=== PATIENT | male | born 1965 | race Caucasian/White ===

== ENCOUNTER 2020-04-23 16:51 | Emergency (ER) | payer BC, OTHER ==
--- NOTE | 2020-04-23 19:05 | RAD REPORT ---
EXAM DESCRIPTION: RAD - Chest Single View - 04/23/2020 6:33 pm CLINICAL HISTORY: cough, fever Chest pain. COMPARISON: No comparisons FINDINGS: Portable technique limits examination quality. The lungs are grossly clear. The heart is normal in size. No displaced fractures. IMPRESSION: No acute intrathoracic process suspected.
--- NOTE | 2020-04-23 19:40 | ER ---
Nurse's Notes [facility] Name: Jose Tinajero Age: 54 yrs Sex: Male : 1965 Arrival Date: 04/23/2020 Time: 17:06 Bed 19 Private MD: Diagnosis: Acute pharyngitis Presentation: 04/23 17:10 Chief complaint: Patient states: Cough and sore throat x 2 days. SOB, fatigue and ca1 malaise. Reports Low grade fever. Denies N/V/D. Coronavirus screen: Patient reports a cough. Patient reports shortness of breath or difficulty breathing. Patient reports a measured and/or subjective temperature greater than 100.4F. Patient denies travel on a cruise ship or to a country the [facility] currently lists as an affected area. Patient denies contact with known and/or suspected case of COVID-19. Patient instructed to continue to wear a mask when interacting with others. Patient moved to private room, placed in contact and droplet isolation with eye protection until further assessment. Ebola Screen: Patient negative for fever greater than or equal to 101.5 degrees Fahrenheit, and additional compatible Ebola Virus Disease symptoms Patient denies exposure to infectious person. Patient denies travel to an Ebola-affected area in the 21 days before illness onset. No symptoms or risks identified at this time. Initial Sepsis Screen: Does the patient meet any 2 criteria? No. Patient's initial sepsis screen is negative. Does the patient have a suspected source of infection? No. Patient's initial sepsis screen is negative. Risk Assessment: Do you want to hurt yourself or someone else? Patient reports no desire to harm self or others. Onset of symptoms was April 23, 2020. 17:10 Method Of Arrival: Ambulatory ca1 17:10 Acuity: RUBY 3 ca1 Historical: - Allergies: 17:13 No Known Allergies; ca1 - PMHx: 17:13 None; ca1 - PSHx: 17:13 None; ca1 - Immunization history:: Adult Immunizations up to date. - Social history:: Smoking status: Patient reports the use of cigarette tobacco products, smokes one-half pack cigarettes per day. Screenin:05 Abuse screen: Denies threats or abuse. Denies injuries from another. Nutritional ph screening: No deficits noted. Tuberculosis screening: No symptoms or risk factors identified. Fall Risk None identified. Assessment: 19:05 General: Appears in no apparent distress. comfortable, Behavior is calm, cooperative, ph appropriate for age, Reports chills for fatigue for Denies fever. Pain: Denies pain. Neuro: Level of Consciousness is awake, alert, obeys commands, Oriented to person, place, time, situation. Cardiovascular: Capillary refill < 3 seconds in bilateral fingers Patient's skin is warm and dry. Respiratory: Reports shortness of breath on exertion cough that is Airway is patent Respiratory effort is even, unlabored, Respiratory pattern is regular, symmetrical. GI: No signs and/or symptoms were reported involving the gastrointestinal system. Derm: Skin is intact, is healthy with good turgor, Skin is pink, warm \T\ dry. Musculoskeletal: Circulation, motion, and sensation intact. Range of motion: intact in all extremities. 20:05 Reassessment: Patient and/or family updated on plan of care and expected duration. Pain mt2 level reassessed. Patient states feeling better. Patient states symptoms have improved. Vital Signs: 17:10 BP 146 / 83; Pulse 73; Resp 17 S; Temp 99.7(TE); Pulse Ox 98% on R/A; Weight 99.79 kg ca1 (R); Height 5 ft. 11 in. (180.34 cm) (R); 20:05 BP 125 / 69; Pulse 81; Resp 19; Temp 98.2(TE); Pulse Ox 97% on R/A; Pain 0/10; mt2 17:10 Body Mass Index 30.68 (99.79 kg, 180.34 cm) ca1 ED Course: 17:06 Patient arrived in ED. mr 17:12 Triage completed. ca1 17:13 Arm band placed on right wrist. ca1 17:15 Jayden Salguero PA is PHCP. jmm 17:15 Jules Hand MD is Attending Physician. jmm 17:47 Suzy Hdz, EDVIN is Primary Nurse. ph 18:33 Chest Single View XRAY In Process Unspecified. EDMS 19:06 Patient has correct armband on for positive identification. Bed in low position. Call ph light in reach. Side rails up X 1. 19:06 Strep Sent. ph 19:06 COVID-19 Sent. ph 19:06 Flu Sent. ph 20:05 No provider procedures requiring assistance completed. Patient did not have IV access mt2 during this emergency room visit. Administered Medications: 20:06 Drug: Decadron 10 mg Route: IM; Site: right deltoid; mt2 20:06 Follow up: Response: No adverse reaction; Medication administered at discharge. mt2 Outcome: 19:39 Discharge ordered by . liliane 20:05 Discharged to home ambulatory. mt2 20:05 Condition: good 20:05 Discharge instructions given to patient, Instructed on discharge instructions, follow up and referral plans. medication usage, Demonstrated understanding of instructions, follow-up care, medications, Prescriptions given X 1. 20:07 Patient left the ED. mt2 Addendum: 04/25/2020 18:42 Addendum: COVID-19 Result: Positive result giiven to ED physician to notify pt. s g Physician: Surinder Lyons MD Physician was able to contact pt and pt was notified of positive COVID-19 swab result. Physician answered pt questions. Signatures: Dispatcher [employer] EDMS Kurt Olivo RN Jayden Pacheco PA PA jmm Rivera, Mary mr Hall, Patricia RN EDVIN Gretchen Reilly RN EDVIN [facility] Bia Montano RN RN mt2
--- NOTE | 2020-04-23 19:40 | EDPHYS ---
Physician Documentation [facility] Name: Jose Tinajero Age: 54 yrs Sex: Male : 1965 Arrival Date: 04/23/2020 Time: 17:06 Bed 19 Private MD: ED Physician Jules Hand HPI: 04/23 18:20 This 54 yrs old Male presents to ER via Ambulatory with complaints of jmm Weakness, Sore Throat. 18:20 The patient or guardian reports cough. Onset: The symptoms/episode began/occurred jmm gradually, 2 day(s) ago. Modifying factors: The symptoms are alleviated by nothing. the symptoms are aggravated by nothing. This is a 54 year old male with no chronic medical conditions that presents to the ED with complaints of cough, sore throat, fatigue beginning approx 2 days ago. Denies shortness of breath. . Historical: - Allergies: 17:13 No Known Allergies; ca1 - PMHx: 17:13 None; ca1 - PSHx: 17:13 None; ca1 - Immunization history:: Adult Immunizations up to date. - Social history:: Smoking status: Patient reports the use of cigarette tobacco products, smokes one-half pack cigarettes per day. ROS: 18:20 Cardiovascular: Negative for chest pain, palpitations, and edema. jmm 18:20 Constitutional: Positive for body aches, fever. 18:20 ENT: Positive for sore throat. 18:20 Respiratory: Positive for cough. 18:20 All other systems are negative. Exam: 18:20 Constitutional: This is a well developed, well nourished patient who is awake, alert, jmm and in no acute distress. Head/Face: atraumatic. Eyes: EOMI, no conjunctival erythema appreciated ENT: Moist Mucus Membranes Neck: Trachea midline, Supple Chest/axilla: Normal chest wall appearance and motion. Cardiovascular: Regular rate and rhythm. No edema appreciated Respiratory: Normal respirations, no respiratory distress appreciated Abdomen/GI: Non distended, soft Back: Normal ROM Skin: General appearance color normal MS/ Extremity: Moves all extremities, no obvious deformities appreciated, no edema noted to the lower extremities Neuro: Awake and alert, normal gait Psych: Behavior is normal, Mood is normal, Patient is cooperative and pleasant 18:20 ENT: Posterior pharynx: erythema, that is mild. Vital Signs: 17:10 BP 146 / 83; Pulse 73; Resp 17 S; Temp 99.7(TE); Pulse Ox 98% on R/A; Weight 99.79 kg ca1 (R); Height 5 ft. 11 in. (180.34 cm) (R); 20:05 BP 125 / 69; Pulse 81; Resp 19; Temp 98.2(TE); Pulse Ox 97% on R/A; Pain 0/10; mt2 17:10 Body Mass Index 30.68 (99.79 kg, 180.34 cm) ca1 MDM: 18:15 Patient medically screened. [facility] 19:38 Data reviewed: vital signs, nurses notes. Counseling: I had a detailed discussion with [facility] the patient and/or guardian regarding: the historical points, exam findings, and any diagnostic results supporting the discharge/admit diagnosis, radiology results, the need for outpatient follow up, to return to the emergency department if symptoms worsen or persist or if there are any questions or concerns that arise at home. 19:38 ED course: Patient is alert and non toxic in appearance in the ED. patient is advised [facility] to return to the ED if he develops shortness of breath or any worsening of symptoms. Patient understood and agrees with the plan of care. . 04/23 17:48 Order name: Strep; Complete Time: 19:37 [facility] 04/23 17:48 Order name: COVID-19 [facility] 04/23 17:48 Order name: Flu; Complete Time: 19:37 [facility] 04/23 18:16 Order name: Chest Single View XRAY; Complete Time: 19:06 [facility] 04/23 19:37 Order name: Throat Culture EDMS Administered Medications: 20:06 Drug: Decadron 10 mg Route: IM; Site: right deltoid; mt2 20:06 Follow up: Response: No adverse reaction; Medication administered at discharge. mt2 Disposition: 04/24 08:29 Co-signature as Attending Physician, Jules Hand MD. rn Disposition: 04/23/20 19:39 Discharged to Home. Impression: Acute pharyngitis. - Condition is Stable. - Discharge Instructions: Pharyngitis, COVID-19. - Prescriptions for Zithromax Z- Eliecer 250 mg Oral Tablet - take 1 tablet by ORAL route as directed for 5 days Day 1 - take two (2) tablets one time. Day 2, 3, 4 , 5 take one (1) tablet once daily.; 6 tablet. - Medication Reconciliation Form, Thank You Letter, Antibiotic Education, Prescription Opioid Use form. - Follow up: Private Physician; When: 2 - 3 days; Reason: Recheck today's complaints, Continuance of care, Re-evaluation by your physician. Signatures: Dispatcher [employer] EDMS Jayden Salguero PA PA jmm Nieto, Roman, MD MD rn Melba, EDVIN Godinez RN ca1 Bia Montano RN RN mt2 Corrections: (The following items were deleted from the chart) 04/23 20:07 19:39 04/23/2020 19:39 Discharged to Home. Impression: Acute pharyngitis. Condition is mt2 Stable. Forms are Medication Reconciliation Form, Thank You Letter, Antibiotic Education, Prescription Opioid Use. Follow up: Private Physician; When: 2 - 3 days; Reason: Recheck today's complaints, Continuance of care, Re-evaluation by your physician. liliane
[2020-04-23] MEDS ORDERED: dexAMETHasone 10 MG/ML VIAL ONE (20:02)
[2020-04-24 10:38] VITALS: BP 125/69; TEMP 98.2; O2SAT 97
== END 2020-04-23 20:07 | disposition home or self-care (01) ==
LOC: ER 16:51
DX: U07.1 COVID-19 (principal); F17.210 Nicotine dependence, cigarettes, uncomplicated
CPT/HCPCS: 87070; 87081; 87804 ×2; 71045; 96372; 99284; U0001; J1100

== ENCOUNTER 2023-03-10 05:22 | Inpatient (IN) | payer BC, OTHER ==
--- OUTSIDE RECORDS SUMMARY | 2023-03-10 05:25 | XMS REPORT | Continuity of Care Document ---
:1965 Author Organization [facility] t Address [address] [place] [address] [place] [id number] Care Team Providers Name Role Phone PCP, PATIENT DOES NOT HAVE A Primary Care Physician Unavaila ERIK Pelaez Attending Clinician Unavailable Erik Biswas Attending Clinician Unknown, Attending Attending Clinician Unavailable Payers Payer Name Policy Type Policy Number Effective Date Expiration Date [facility] [id number] 2022 00:00:00 Problems Condition Condition Condition Status Onset Resolution Last Treating Co mments Source Name Details Category Date Date Treatment Clinician Date No known No known Disease Unive rs active active ity of problems problems [facility] Allergies, Adverse Reactions, Alerts Allergy Allergy Status Severity Reaction(s) Onset Inactive Treating Comm ents Source Name Type Date Date Clinician NO KNOWN Drug Active Univers ALLERGIE Class ity of S [facility] Social History Social Habit Start Date Stop Date Quantity Comments Source Exposure to 2022-09-30 2022-10-10 Not sure [facility]-CoV-2 00:00:00 10:18:00 [facility] (event) [place] Tobacco use and 2022-10-10 2022-10-10 Smokeless tobacco Un iversity of exposure 00:00:00 00:00:00 non-user [facility] Sex Assigned At [birth year] Univers[facility] y of 00:00:00 00:00:00 [facility] Smoking Status Start Date Stop Date Source Never smoked tobacco [facility] Medications Ordered Filled Start Stop Current Ordering Indication Dosage Frequency Signature Comments Components Source Medication Medication Date Date Medication? Clinician (SIG) Name Name mupirocin 2 Yes [id number] Apply to Univers % ointment 10-10 area(s) 3 ity of 00:00: (three) [place] 00 times Medical daily. Branch sulfamethox 2022- No [id number] 1{tbl} Take 1 Univers azole-trime 10-10 tablet by it y oprim 00:00: 05:59 mouth in [place] (BACTRIM 00 :00 the Medical DS) 800-160 morning Branc h mg per and 1 tablet tablet in the evening. Do all this for 10 days. Vital Signs Vital Name Observation Time Observation Value Comments Source Systolic blood 2022-10-10 16:23:00 133 mm[Hg] Univer sity pressure [facility] Diastolic blood 2022-10-10 16:23:00 75 mm[Hg] [facility] Heart rate 2022-10-10 16:23:00 68 /min [facility] Body temperature 2022-10-10 16:23:00 36.61 [facility] Respiratory rate 2022-10-10 16:23:00 16 /min [facility] Body weight 2022-10-10 16:23:00 98.884 kg [facility] Oxygen saturation in 2022-10-10 16:23:00 97 /min [facility] Arterial blood by [facility] Pulse oximetry Branch Procedures This patient has no known procedures. Encounters Start End Encounter Admission Attending Care Care Encounter Source Date/Time Date/Time Type Type Clinicians Facility Department ID 2022-10-10 2022-10-10 Outpatient Ginette LUU [facility] [id number] Univers 10:20:00 11:14:48 ERIK mcdonough [facility] 2022-10-10 2022-10-10 Urgent Erik Luu [facility] [id number] Univers 10:20:00 11:14:48 Care Unknown, Attending HEALTH [id number] ity [facility] [id number] Jacques as SANJAY?BLEA [phone] Ia courtney [address] MEDICAL OFFICE BUILDING 2020-05-09 2020-05-09 Outpatient [facility] 00:00:00 00:00:00 [id number] Results This patient has no known results.
[2023-03-10] MEDS ORDERED: LORazepam 2 MG/ML VIAL ONE (06:01)
[2023-03-10] MEDS ORDERED: DICYCLOMINE HCL 20 MG/2 ML AMP IM ONE (06:02)
[2023-03-10] MEDS ORDERED: HYDROCODONE/APAP 10/325 TAB ONE (06:02)
[2023-03-10] MEDS ORDERED: NA CHLORIDE 0.9% 1,000 ML ONE (06:08)
[2023-03-10 06:30] LABS: Absolute Lymphocytes (CBC) 1.1 K/uL (0.7-4.9); Hematocrit 48.7 % (39.6-49.0); Lymphocytes % 8.3 % (15.3-44.8); MCV 89.9 fL (80-100); MPV 8.7 fL (7.6-11.3); RBC Red Blood Cell Count 5.41 M/uL (4.33-5.43)
[2023-03-10 06:53] LABS: Albumin 3.9 g/dL (3.4-5.0); Bilirubin Direct 0.1 mg/dL (0-0.2); Bilirubin Indirect, Calculated 0.4 mg/dL (0.2-0.8); Bilirubin Total 0.5 mg/dL (0.2-1.0); Magnesium 2.3 mg/dL (1.6-2.4); Potassium 4.4 mEq/L (3.5-5.1); Protein, Total 8.6 g/dL (6.4-8.2)
[2023-03-10 06:59] LABS: Protime INR 1.05
[2023-03-10 06:59] LABS: Troponin High Sensitivity 503.6 pg/mL (<58.9)
--- NOTE | 2023-03-10 07:14 | EKG ---
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
--- NOTE | 2023-03-10 07:47 | ER ---
Nurse's Notes [facility] Name: Jose Tinajero Age: 57 yrs Sex: Male : 1965 Arrival Date: 03/10/2023 Time: 05:22 Bed 7 Private MD: Diagnosis: Pain, unspecified;Elevated troponin Presentation: 03/10 05:43 Chief complaint: Patient states: muscle spasms to tight side and back off and on x 1 kl week. Coronavirus screen: Vaccine status: Patient reports being unvaccinated. Ebola Screen: Patient negative for fever greater than or equal to 101.5 degrees Fahrenheit, and additional compatible Ebola Virus Disease symptoms. Initial Sepsis Screen: Does the patient meet any 2 criteria? No. Patient's initial sepsis screen is negative. Does the patient have a suspected source of infection? No. Patient's initial sepsis screen is negative. Risk Assessment: Do you want to hurt yourself or someone else? Patient reports no desire to harm self or others. Onset of symptoms was March 03, 2023. 05:43 Method Of Arrival: Wheelchair 05:43 Acuity: RUBY 3 kl Triage Assessment: 05:47 General: Appears distressed, uncomfortable, Behavior is cooperative, anxious. Pain: kl Complains of pain in right side and back Pain currently is 10 out of 10 on a pain scale. Quality of pain is described as crampy, sharp, shooting, squeezing. Historical: - Allergies: 05:46 No Known Allergies; kl - Home Meds: 05:46 None [Active]; kl - PMHx: 05:46 None; kl - PSHx: 05:46 None; kl - Immunization history:: Adult Immunizations not immunized. - Social history:: Smoking status: Patient reports the use of cigarette tobacco products, smokes one pack cigarettes per day. - Family history:: not pertinent. Screenin:00 [facility] ED Fall Risk Assessment (Adult) History of falling in the last 3 months, lg3 including since admission No falls in past 3 months (0 pts). Abuse screen: Denies threats or abuse. Denies injuries from another. Nutritional screening: No deficits noted. Tuberculosis screening: No symptoms or risk factors identified. Assessment: 06:00 General: Appears in no apparent distress. uncomfortable, Behavior is calm, cooperative. lg3 Pain: Complains of pain in back and abdomen. Neuro: No deficits noted. Gallardo Agitation-Sedation Scale (RASS): 0 - Alert and Calm Level of Consciousness is awake, alert, obeys commands, Oriented to person, place, time, situation. Cardiovascular: No deficits noted. Denies chest pain, shortness of breath, Capillary refill < 3 seconds Clubbing of nail beds is absent JVD is absent Patient's skin is warm and dry. Respiratory: No deficits noted. Airway is patent Respiratory effort is even, unlabored, Respiratory pattern is regular, symmetrical. GI: No deficits noted. No signs and/or symptoms were reported involving the gastrointestinal system. Abdomen is round non-distended. : No deficits noted. No signs and/or symptoms were reported regarding the genitourinary system. EENT: No deficits noted. No signs and/or symptoms were reported regarding the EENT system. Derm: No deficits noted. No signs and/or symptoms reported regarding the dermatologic system. Skin is intact, is healthy with good turgor, Skin is dry, Skin is normal, Skin temperature is warm. Musculoskeletal: Circulation, motion, and sensation intact. Range of motion: intact in all extremities, Reports pain in back and abdomen. 06:56 Reassessment: PT is resting in bed with eyes closed, respirations are even and jb4 unlabored with no s/s of pain or distress noted. 06:56 Reassessment: Patient appears in no apparent distress at this time. No changes from lg3 previously documented assessment. Patient and/or family updated on plan of care and expected duration. Pain level reassessed. Patient is alert, oriented x 3, equal unlabored respirations, skin warm/dry/pink. 07:43 Reassessment: Patient appears in no apparent distress at this time. Pt resting with vg1 eyes closed. 03/11 12:17 Reassessment: attempted to call report, nurse unavailable. kc6 Vital Signs: 03/10 05:43 BP 156 / 81; Pulse 79; Resp 20; Temp 97.5(TE); Pulse Ox 98% on R/A; Weight 102 kg; kl Height 5 ft. 11 in. ; Pain 10/10; 06:56 BP 134 / 77; Pulse 80; Resp 16; Pulse Ox 93% on R/A; jb4 07:38 BP 132 / 85; Pulse 83; Resp 20; Pulse Ox 95% on R/A; vg1 05:43 Body Mass Index 31.36 (102.00 kg, 180.34 cm) kl 05:43 Pain Scale: Adult kl ED Course: 05:24 Patient arrived in ED. ja2 05:41 Gustavo Ornelas MD is Attending Physician. sp4 05:46 Triage completed. kl 05:56 XRAY Chest (1 view) In Process Unspecified. EDMS 06:00 Patient has correct armband on for positive identification. Placed in gown. Bed in low lg3 position. Call light in reach. Side rails up X 1. Client placed on continuous cardiac and pulse oximetry monitoring. NIBP monitoring applied. internet marketing coordinator on. Door closed. Noise minimized. Warm blanket given. Family accompanied patient. 06:00 Inserted saline lock: 20 gauge in right antecubital area, using aseptic technique. lg3 Blood collected. 06:08 Aaron Ferreira RN is Primary Nurse. jb4 07:04 Attending Physician role handed off by Gustavo Ornelas MD rn 07:04 Jules Hand MD is Attending Physician. rn 07:45 Tip Crawford MD is Hospitalizing Provider. rn 08:28 CT Aorta for Dissection In Process Unspecified. EDMS [id number] 07:00 Report received from EDVIN PA and Renetta Beach RN. kc6 12:42 No provider procedures requiring assistance completed. Patient admitted, IV remains in kc6 place. Administered Medications: 03/10 06:01 Drug: Ativan IVP 2 mg Route: IVP; Site: right antecubital; jb4 06:01 Drug: Dicyclomine IM 20 mg Route: IM; Site: right deltoid; jb4 06:01 Drug: Marshall PO 10 mg-325 mg 1 tabs Route: PO; jb4 06:08 Drug: NS 0.9% IV 1000 ml Route: IV; Rate: 1 bolus; Site: right antecubital; jb4 06:08 Drug: Sodium Bicarbonate IVP 1 amp Route: IVP; Site: right antecubital; jb4 11:01 Drug: Aspirin PO 325 mg Route: PO; ld1 11:09 Follow up: Response: No adverse reaction ld1 11:09 Drug: Enoxaparin Sub-Q 1 mg/kg Route: Sub-Q; Site: abdomen; ld1 Medication: 03/11 12:42 VIS not applicable for this client. kc6 Outcome: 03/10 07:46 Decision to Hospitalize by Provider. rn 03/11 12:42 Admitted to Med/surg accompanied by thao, via stretcher, room 207, with chart, Report kcBrittani called to EDVIN Hong Condition: stable Instructed on the need for admit. 12:52 Patient left the ED. ss Signatures: Dispatcher [employer] EDCata Ferrer, RN RN Jules Erwin MD MD rn Smirch, Shelby, RN RN ss Bryson, James RN RN jono4 Gayla Hassan RN RN monik3 Anna Ruby RN RN gay1 Zoe Orellana RN RN ld1 Gayle Pleitez Kaitlyn, RN RN kc6 Gustavo Ornelas MD MD sp4 Corrections: (The following items were deleted from the chart) 03/10 07:43 07:42 Reassessment: Patient appears in no apparent distress at this time. Patient vg1 and/or family updated on plan of care and expected duration. Pain level reassessed. Patient is alert, oriented x 3, equal unlabored respirations, skin warm/dry/pink. Patient states feeling better. vg1
--- NOTE | 2023-03-10 07:47 | EDPHYS ---
Physician Documentation [facility] Name: Jose Tinajero Age: 57 yrs Sex: Male : 1965 Arrival Date: 03/10/2023 Time: 05:22 Bed 7 Private MD: ED Physician Jules Hand HPI: 03/10 05:45 This 57 yrs old Male presents to ER via Unassigned with complaints of Pain All sp4 Over. 06:56 Patient presents with worsening muscular contractions starting Wednesday 2 days ago on the sp4 right side of his spine traveling into the right shoulder. Patient states that he has had this kind of painful muscular contractions in the past but they usually come and go. Since Wednesday they were fairly constant causing moderate to severe pain to his right posterior chest. Patient is feeling unwell today. Historical: - Allergies: 05:46 No Known Allergies; kl - Home Meds: 05:46 None [Active]; kl - PMHx: 05:46 None; kl - PSHx: 05:46 None; kl - Immunization history:: Adult Immunizations not immunized. - Social history:: Smoking status: Patient reports the use of cigarette tobacco products, smokes one pack cigarettes per day. - Family history:: not pertinent. ROS: 06:56 Constitutional: Negative for fever, chills, and weight loss, Eyes: Negative for injury, sp4 pain, redness, and discharge, ENT: Negative for injury, pain, and discharge, Neck: Negative for injury, pain, and swelling, Cardiovascular: Negative for chest pain, palpitations, and edema, Respiratory: Negative for shortness of breath, cough, wheezing, and pleuritic chest pain, Abdomen/GI: Negative for abdominal pain, nausea, vomiting, diarrhea, and constipation, Back: Negative for injury and pain, : Negative for injury, bleeding, discharge, and swelling, MS/Extremity: Negative for injury and deformity, Skin: Negative for injury, rash, and discoloration, Neuro: Negative for headache, weakness, numbness, tingling, and seizure, Psych: Negative for depression, anxiety, Allergy/Immunology: Negative for hives, rash, and allergies Endocrine: Negative for neck swelling, polydipsia, polyuria, polyphagia, and weight changes Hematologic/Lymphatic: Negative for swollen nodes, abnormal bleeding, and unusual bruising Exam: 06:56 Constitutional: This is a well developed, well nourished patient who is awake, alert, sp4 and in no acute distress. Pale appearing uncomfortable appearing Head/Face: Normocephalic, atraumatic. Eyes: Pupils equal round and reactive to light, extra-ocular motions intact. Lids and lashes normal. Conjunctiva and sclera are not injected. Cornea within normal limits. Periorbital areas with no swelling, redness, or edema. ENT: Nares patent. No nasal discharge, no septal abnormalities noted. Tympanic membranes are normal and external auditory canals are clear. Oropharynx with no redness, swelling, or masses, exudates, or evidence of obstruction, uvula midline. Mucous membranes moist. Neck: Trachea midline, no thyromegaly or masses palpated, and no cervical lymphadenopathy. Supple, full range of motion without nuchal rigidity, or vertebral point tenderness. No Meningismus. Chest/axilla: Normal chest wall appearance and motion. Nontender with no deformity. No lesions are appreciated. Cardiovascular: Regular rate and rhythm with a normal S1 and S2. No gallops, murmurs, or rubs. Normal PMI, no JVD. No pulse deficits. Respiratory: Lungs have equal breath sounds bilaterally, clear to auscultation and percussion. No rales, rhonchi or wheezes noted. No increased work of breathing, no retractions or nasal flaring. Abdomen/GI: Soft, non-tender, with normal bowel sounds. No distension or tympany. No guarding or rebound. No evidence of tenderness throughout. Back: No spinal tenderness. No costovertebral tenderness. Skin: Warm, dry with normal turgor. Normal color with no rashes, no lesions, and no evidence of cellulitis. MS/ Extremity: Pulses equal, no cyanosis. Neurovascular intact. Full, normal range of motion. Neuro: Awake and alert, GCS 15, oriented to person, place, time, and situation. Cranial nerves II-XII grossly intact. Motor strength 5/5 in all extremities. Sensory grossly intact. Psych: Awake, alert, with orientation to person, place and time. Behavior, mood, and affect are within normal limits 06:56 ECG was reviewed by the Attending Physician. Normal sinus rhythm at the rate of 77, sp4 premature atrial contractions, no ST elevation or depression, no ectopy, otherwise normal EKG Vital Signs: 05:43 BP 156 / 81; Pulse 79; Resp 20; Temp 97.5(TE); Pulse Ox 98% on R/A; Weight 102 kg; kl Height 5 ft. 11 in. ; Pain 10/10; 06:56 BP 134 / 77; Pulse 80; Resp 16; Pulse Ox 93% on R/A; jb4 07:38 BP 132 / 85; Pulse 83; Resp 20; Pulse Ox 95% on R/A; vg1 05:43 Body Mass Index 31.36 (102.00 kg, 180.34 cm) kl 05:43 Pain Scale: Adult kl MDM: 05:51 Patient medically screened. sp4 07:43 Differential Diagnosis rhabdomyolysis, dehydration, electrolyte disorder, CAD. Data rn reviewed: vital signs, nurses notes, lab test result(s), EKG, radiologic studies, plain films, and as a result, I will admit patient. Consideration of Admission/Observation Patient was admitted/placed on observation. Escalation of care including admission/observation considered. Counseling: I had a detailed discussion with the patient and/or guardian regarding: the historical points, exam findings, and any diagnostic results supporting the discharge/admit diagnosis, lab results, radiology results, the need for further work-up and treatment in the hospital. 07:45 Management of patient was discussed with the following: Primary Care Provider: Dr. edvin Crawford. Independent interpretation of the following test(s) in the Emergency Department EKG: See my EKG interpretation above X-Ray: My interpretation is CXR images neg for pneumothorax per my interpretation. Response to treatment: the patient's symptoms have mildly improved after treatment, and as a result, I will admit patient. 03/10 05:41 Order name: Basic Metabolic Panel; Complete Time: 07:03 sp4 03/10 05:41 Order name: CBC with Diff; Complete Time: 07:03 sp4 03/10 05:41 Order name: LFT's; Complete Time: 07:03 sp4 03/10 05:41 Order name: Magnesium; Complete Time: 07:03 sp4 03/10 05:41 Order name: NT PRO-BNP; Complete Time: 07:03 sp4 03/10 05:41 Order name: PT-INR; Complete Time: 07:03 sp4 03/10 05:41 Order name: Troponin HS; Complete Time: 07:03 sp4 03/10 06:27 Order name: Creatine Phosphokinase; Complete Time: 07:03 EDMS 03/10 15:00 Order name: Troponin High Sensitivity; Complete Time: 17:26 EDMS 03/10 18:48 Order name: Troponin High Sensitivity EDMS 03/11 02:46 Order name: Basic Metabolic Panel EDMS 03/11 02:47 Order name: CBC with Automated Diff EDMS 03/10 05:41 Order name: XRAY Chest (1 view) sp4 03/10 08:10 Order name: CT Aorta for Dissection; Complete Time: 09:26 rn 03/10 05:41 Order name: EKG; Complete Time: 05:42 sp4 03/10 07:47 Order name: EKG Electrocardiogram EDMS 03/10 10:11 Order name: Diet Heart Healthy; Complete Time: 10:12 ld1 03/10 05:41 Order name: Cardiac monitoring; Complete Time: 06:02 sp4 03/10 05:41 Order name: EKG - Nurse/Tech; Complete Time: 06:02 sp4 03/10 05:41 Order name: IV Saline Lock; Complete Time: 06:02 sp4 03/10 05:41 Order name: Labs collected and sent; Complete Time: 06:02 sp4 03/10 05:41 Order name: O2 Per Protocol; Complete Time: 06:02 sp4 03/10 05:41 Order name: O2 Sat Monitoring; Complete Time: 06:02 sp4 EC:56 Rate is 77 beats/min. Rhythm is irregular, Normal Sinus Rhythm with PACs. QRS [place] is sp4 Normal. WI interval is normal. QRS interval is normal. QT interval is normal. T waves are Normal. Clinical impression: No evidence of ischemia. Interpreted by me. Administered Medications: 06:01 Drug: Ativan IVP 2 mg Route: IVP; Site: right antecubital; 06: Drug: Dicyclomine IM 20 mg Route: IM; Site: right deltoid; 06:01 Drug: [place] PO 10 mg-325 mg 1 tabs Route: PO; 06:08 Drug: NS 0.9% IV 1000 ml Route: IV; Rate: 1 bolus; Site: right antecubital; 06:08 Drug: Sodium Bicarbonate IVP 1 amp Route: IVP; Site: right antecubital; jb4 11:01 Drug: Aspirin PO 325 mg Route: PO; ld1 11:09 Follow up: Response: No adverse reaction ld1 11: Drug: Enoxaparin Sub-Q 1 mg/kg Route: Sub-Q; Site: abdomen; ld1 Disposition Summary: 03/10/23 07:46 Hospitalization Ordered Hospitalization Status: Observation rn Provider: Tip Crawford rn Condition: Stable rn Problem: new rn Symptoms: have improved rn Bed/Room Type: Standard rn Location: Telemetry/MedSurg (Inpatient)(03/11/23 12:02) ja Room Assignment: [facility](03/11/23 12:02) [facility] Diagnosis - Pain, unspecified rn - Elevated troponin rn Forms: - Medication Reconciliation Form rn - SBAR form rn Signatures: Dispatcher [employer] EDMS Cata Felton, RN Sowmya Strong RN Jules Corbett MD MD rn Bryson, James RN EDVIN de la cruz4 Thomas Arita RN Zoe Alexander RN RN Gustavo Hinojosa MD MD sp4 Corrections: (The following items were deleted from the chart) 06:26 05:51 CREATINE PHOSPHOKINASE+C.LAB.BRZ ordered. EDMI EDMI 11:29 07:46 Telemetry/MedSurg (observation) edvin iw 11:29 07:46 rn iw 11:29 11:29 iw iw 03/11 12:02 03/10 11:29 BR ER HOLD iw ja1 03/11 12:02 03/10 11:29 ERHOLD- ja1
--- NOTE | 2023-03-10 09:08 | RAD REPORT ---
EXAM DESCRIPTION: CT - Angio Aorta For Dissection - 03/10/2023 8:45 am CLINICAL HISTORY: Chest pain radiating to the back. chest and back pain COMPARISON: No comparisons TECHNIQUE: CT angiography of the aorta was performed with MIPs. All CT scans are performed using dose optimization technique as appropriate and may include automated exposure control or mA/KV adjustment according to patient size. FINDINGS: A left aortic arch is present with normal branching pattern of the great vessels.No acute aortic finding is seen such as aneurysm, penetrating ulcer or dissection. The celiac axis, SMA, BETTE and renal arteries are patent. No evidence of pulmonary embolism. The lungs are mildly emphysematous but clear. The liver demonstrates no focal mass or biliary dilatation.The spleen, pancreas and kidneys are withi n normal limits for arterial phase imaging.Areas of nodularity are seen in both adrenal glands. No bowel obstruction, free fluid or abscess.Normal appendix.No pathologic enlarged lymphadenopathy id entified.Moderate fat containing left inguinal hernia. Mild spondylosis of lumbar spine. IMPRESSION: No acute aortic finding is demonstrated. COPD.
[2023-03-10] MEDS ORDERED: ASPIRIN 81 MG CHEWABLE TABLET ONE (10:52)
[2023-03-10] MEDS ORDERED: ENOXAPARIN 100 MG/ML SYR SQ ONE ×2 (11:12→20:52)
[2023-03-10] MEDS ORDERED: ONDANSETRON 4 MG/2 ML VIAL IV PRN (12:36)
--- NOTE | 2023-03-10 13:34 | RAD REPORT ---
EXAM DESCRIPTION: Chest Single View CLINICAL HISTORY: CHEST PAIN TECHNIQUE: AP chest COMPARISON: None available for comparison FINDINGS: CHEST: Heart: The cardiomediastinal silhouette is within normal limits. Lungs: No focal consolidation. Atelectatic changes in the right lung base. Mediastinum: Unremarkable Pleura: No appreciable effusion. No pneumothorax. Bones: Intact IMPRESSION: Atelectatic changes in the right lung base. No other radiographic evidence of acute card iopulmonary disease. Electronically signed by: Thomas Pandey MD 03/10/2023 6:29 AM CDT Due to temporary technical issues with the PACS/Fluency reporting system, reports are being signed by the in house radiologist without review as a courtesy to ensure prompt reporting. The interpreting r adiologist is fully responsible for the content of the report.
--- NOTE | 2023-03-10 14:33 | EKG ---
Test Date: 2023-03-10 Test Time: 05:55:52 Flagger: TRU MEASUREMENT RESULTS: Intervals: Rate: 77 MD: 132 QRSD: 78 QT: 364 QTc: 411 Wallace: P: 80 MD: 132 QRS: 62 T: 50 INTERPRETIVE STATEMENTS: Sinus rhythm with premature atrial complexes Otherwise normal ECG Compared to ECG 03/10/2023 05:55:22 No significant changes Electronically Signed On 03-10-23 14:32:12 CDT by Kevin Oliveira
--- NOTE | 2023-03-10 18:04 | P.HP ---
Certification for Inpatient Patient admitted to: Inpatient With expected LOS: >2 Midnights Practitioner: I am a practitioner with admitting privileges, knowledge of patient current condition, hospital course, and medical plan of care. Services: Services provided to patient in accordance with Admission requirements found in Title 42 Section 412.3 of the Code of Federal Regulations Patient History Date of Service: 03/10/23 Reason for admission: SEVERE BACK PAIN History of Present Illness: SHAMEKA IS A HEAVY SMOKER WHO HAS NOT BEEN TO MY OFFICE FOR FIVE YEARS COMES TO ER WITH SEVERE UPPER BACK PAIN. HE HAS TROP LEVEL TRACY IS HIGH AT 500. I ASKED FOR DISSECTION STUDY THAT IS NEGATIVE. HE WILL GET CATH TOMORROW HE IS HIGH RISK FOR CAD. Allergies No Known Allergies Allergy (Verified 09/11/16 17:38) Home Medications: Ibuprofen/Acetaminophen [Advil Dual Action 250Mg-125Mg] 250 mg PO 1X 03/10/23 - Past Medical/Surgical History Has patient received pneumonia vaccine in the past: No - Social History Smoking Status: Current every day smoker Alcohol use: Yes CD- Drugs: No Caffeine use: Yes Place of Residence: Home Review of Systems 10-point ROS is otherwise unremarkable Physical Examination - Vital Signs Blood Pressure: 138/72 Pulse: 85 Respirations: 18 Pulse Ox (%): 95 - Physical Exam General: Oriented x3, Severe distress HEENT: Atraumatic, PERRLA, Mucous membr. moist/pink, EOMI, Sclerae nonicteric Neck: Supple, 2+ carotid pulse no bruit, No LAD, Without JVD or thyroid abnormality Respiratory: Clear to auscultation bilaterally, Normal air movement Cardiovascular: Regular rate/rhythm, Normal S1 S2 Gastrointestinal: Normal bowel sounds, No tenderness Musculoskeletal: No tenderness Integumentary: No rashes Neurological: Normal gait, Normal speech, Normal strength at 5/5 x4 extr, Normal tone, Normal affect Lymphatics: No axilla or inguinal lymphadenopathy - Studies Laboratory Data (last 24 hrs) 03/10/23 06:40: PT 11.5, INR 1.05 03/10/23 06:00: WBC 13.30 H, Hgb 15.8, Hct 48.7, Plt Count 246 03/10/23 06:00: Sodium 137, Potassium 4.4, BUN 23 H, Creatinine 1.39 H, Glucose 157 H, Magnesium 2.3, Total Bilirubin 0.5, AST 17, ALT 29, Alkaline Phosphatase 94 Assessment and Plan - Problems (Diagnosis) (1) Unstable angina Current Visit: Yes Status: Acute Plan: LOVENOX SC BID ASA DAILY CONSULT CARDIOLOGY CATH IN AM. (2) Tobacco use Current Visit: No Status: Chronic Plan: SMOKING CESSATION EFFORTS HAVE FAILED. HE WILL NEED ONGOING CARE FOR WHICH HE WILL HOPEFULLY COME TO OFFICE. - Advance Directives Does patient have a Living Will: No Does patient have a Durable POA for Healthcare: No
[2023-03-10] MEDS: HYDROMORPHONE HCL 2 MG/ML inj IV PRN (18:32)
[2023-03-10] MEDS: ENOXAPARIN 100 MG/ML SYR SQ SCH (23:00)
[2023-03-11 02:36] LABS: Absolute Lymphocytes (CBC) 1.7 K/uL (0.7-4.9); Hematocrit 44.9 % (39.6-49.0); Lymphocytes % 15.3 % (15.3-44.8); MCV 89.6 fL (80-100); MPV 8.4 fL (7.6-11.3)
[2023-03-11 02:45] LABS: Potassium 3.9 mEq/L (3.5-5.1)
[2023-03-11] MEDS: HYDROMORPHONE HCL 2 MG/ML inj IV PRN (04:42)
[2023-03-11] MEDS ORDERED: HYDROMORPHONE HCL 2 MG/ML inj ONE (04:46)
[2023-03-11] MEDS: ASPIRIN EC 81 MG TAB PO SCH (09:00)
[2023-03-11] MEDS: ENOXAPARIN 100 MG/ML SYR SQ SCH ×2 (09:00→21:00)
[2023-03-11] MEDS ORDERED: ASPIRIN EC 81 MG TAB PO ONE (09:04)
[2023-03-11] MEDS ORDERED: LIDOCAINE 1% 20 ML MDV ONE (13:18)
[2023-03-11] MEDS ORDERED: HEPA 1000U/500MLS 2,000 UNIT/1,000 ML BAG IV ONE (13:18)
[2023-03-11] MEDS ORDERED: CLOPIDOGREL 75 MG TABLET ONE (13:19)
[2023-03-11] MEDS ORDERED: MIDAZOLAM HCL 2 MG/2 ML INJ ONE (13:19)
[2023-03-11] MEDS ORDERED: ASPIRIN 325 MG TAB ONE (13:19)
[2023-03-11] MEDS ORDERED: VERAPAMIL HCL 10 MG/4 ML VIAL IV ONE (13:19)
[2023-03-11] MEDS ORDERED: HEPARIN 5000 UNIT/ML 1 ML VIAL ONE (13:19)
[2023-03-11] MEDS ORDERED: FENTANYL CITR 100 MCG/2 ML ONE ×2 (13:19→15:18)
[2023-03-11] MEDS ORDERED: TICAGRELOR 90 MG TABLET PO ONE (13:20)
[2023-03-11] MEDS ORDERED: ATROPINE SULF 1 MG/10 ML SYR IV ONE (13:20)
[2023-03-11] MEDS ORDERED: HEPARIN 10,000 UNIT/10 ML VIAL IV ONE (13:20)
[2023-03-11] MEDS ORDERED: NA CHLORIDE 0.9% 500 ML ONE (13:39)
--- NOTE | 2023-03-11 15:04 | OP ---
Date of Procedure: 03/11/2023 Surgeon: MAR MOREAU Procedures Performed: 1.Selective angiogram. 2.Left heart catheterization. Indication: Non-ST elevation myocardial infarction. Access: Right radial artery 6-Bermudian closed with TR band. Complications: None. Bleeding: Less than 20 mL. Anesthesia: Total sedation time was 30 minutes. Description Of Procedure: After risks, benefits, and alternatives were explained, the patient agreed to the procedure and signed informed consent. The patient was brought into the cardiac catheterizat ion laboratory, prepped and draped in the usual sterile fashion. Then, I accessed right radial arter y using pediatric micropuncture kit, placed 6-Bermudian Slender sheath and took 5-Bermudian [place] [address] in the aortic root, engaged left main and right coronary artery, took standard views and the cath eter was pushed over the wire into the LV, measured the LVEDP, pullback did not record any gradient. I then removed the catheter and the sheath, placed TR band with good hemostasis. Findings: 1.Left main; large and normal. 2.LAD; large and normal. Normal diagonal branches. 3.There is a ramus intermedius that is totally normal. 4.Left circumflex, may be ostial 20% to 30% stenosis. The rest of it is normal. Normal OM branches . 5.RCA is large, dominant, and normal. 6.LVEDP is normal between 8 and 10 mmHg. Conclusion: 1.No significant coronary artery disease. 2.Borderline LVEDP. Recommendations: Medical management. /DEVEN Voice ID: [id number] Report ID: [id number]
[2023-03-11 15:49] VITALS: O2SAT 92
[2023-03-11] MEDS ORDERED: TRAMADOL HCL 50 MG TAB PO PRN (18:33)
--- NOTE | 2023-03-11 20:58 | P.PN ---
Subjective Date of Service: 03/11/23 Chief Complaint: SEVERE BACK PAIN Subjective: No new changes WITH HEAVY SMOKING HISTORY WE THOUGHT OF CORONARY DISEASE BUT HIS CARDIAC CATH WAS TOTALLY NORMAL. HE COTNINEUS TO HAVE UPPER BACK PAIN THAT IS SEVERE. Review of Systems 10-point ROS is otherwise unremarkable General: As per HPI Physical Examination - Vital Signs Temperature: 99.2 F Blood Pressure: 131/69 Pulse: 79 Respirations: 16 Pulse Ox (%): 92 - Physical Exam General: Alert, In no apparent distress HEENT: Atraumatic, PERRLA, EOMI Neck: Supple, JVD not distended Respiratory: Clear to auscultation bilaterally, Normal air movement Cardiovascular: Regular rate/rhythm, Normal S1 S2 Gastrointestinal: Normal bowel sounds, No tenderness Musculoskeletal: No tenderness Integumentary: No rashes Neurological: Normal speech, Normal tone, Normal affect Lymphatics: No axilla or inguinal lymphadenopathy - Studies Laboratory Data (last 24 hrs) 03/11/23 02:00: Sodium 134 L, Potassium 3.9, BUN 17, Creatinine 1.16, Glucose 141 H 03/11/23 02:00: WBC 10.90, Hgb 14.8, Hct 44.9, Plt Count 213 Medications List Reviewed: Yes Assessment And Plan - Current Problems (Diagnosis) (1) Unstable angina Current Visit: Yes Status: Acute Plan: LOVENOX SC BID ASA DAILY CONSULT CARDIOLOGY CATH IN AM. CATH NEG. WILL DO MRI OF T SPINE IN AM. DISSECTION PROTOCOL NORMAL. NO SIGNS OF ANY TUMOR RULE OUT RADICULAR PAIN VS. SECONDARY PATHOLOGY. (2) Tobacco use Current Visit: No Status: Chronic Plan: SMOKING CESSATION EFFORTS HAVE FAILED. HE WILL NEED ONGOING CARE FOR WHICH HE WILL HOPEFULLY COME TO OFFICE.
[2023-03-12] MEDS: HYDROMORPHONE HCL 2 MG/ML inj IV PRN (08:56)
[2023-03-12] MEDS: ASPIRIN EC 81 MG TAB PO SCH (08:56)
[2023-03-12] MEDS ORDERED: ENOXAPARIN 40 MG/0.4 ML SQ SCH (09:00)
[2023-03-12] MEDS ORDERED: dexAMETHasone 4 MG/ML VIAL IV SCH (12:00)
[2023-03-12 15:04] VITALS: BMI 31.4
--- NOTE | 2023-03-12 16:24 | P.DS ---
Admission Date: 03/11/23 Discharge Date: 03/12/23 Disposition: ROUTINE DISCHARGE Discharge Condition: FAIR Reason for Admission: SEVERE BACK PAIN - Problems (1) Unstable angina Current Visit: Yes Status: Acute (2) Tobacco use Current Visit: No Status: Chronic Brief History of Present Illness: SHAMEKA IS A HEAVY SMOKER WHO HAS NOT BEEN TO MY OFFICE FOR FIVE YEARS COMES TO ER WITH SEVERE UPPER BACK PAIN. HE HAS TROP LEVEL TRACY IS HIGH AT 500. I ASKED FOR DISSECTION STUDY THAT IS NEGATIVE. HE WILL GET CATH TOMORROW HE IS HIGH RISK FOR CAD. Hospital Course: SHAMEKA HAD SEVERE MID BACK PAIN, WITH SMOKING HISTORY WE RULED OUT DISSECTION, RULED OUT CAD WITH ANGIOGRAM. I ORDERED MRI THAT SHOWED MILD INFLAMMATION AND 8-4 MM T SPINE EPIDURAL STRUCTURE THAT WILL NEED FU. I CALLED HIM AND HE DID NOT REPLY. I CALLED AND DISCUSSED ABOVE. STEROIDS IV HELPED HIS PAIN. I SENT RX FOR STEROIDS AN TRAMADOL. HE WILL FU IN OFFICE AND MAY NEED AIRCRAFT LIFE SUPPORT FITTER AND PAIN MD. Vital Signs/Physical Exam: Temp Pulse Resp BP Pulse Ox 97 F 53 16 122/68 93 03/12/23 12:00 03/12/23 12:00 03/12/23 12:00 03/12/23 12:00 03/12/23 12:00 Laboratory Data at Discharge: WBC 10.90 thou/uL (4.3-10.9) 03/11/23 02:00 Hgb 14.8 g/dL (13.6-17.9) 03/11/23 02:00 Hct 44.9 % (39.6-49.0) 03/11/23 02:00 Plt Count 213 thou/uL (152-406) 03/11/23 02:00 PT 11.5 SECONDS (9.5-12.5) 03/10/23 06:40 INR 1.05 03/10/23 06:40 Sodium 134 mEq/L (136-145) L 03/11/23 02:00 Potassium 3.9 mEq/L (3.5-5.1) 03/11/23 02:00 BUN 17 mg/dL (7-18) 03/11/23 02:00 Creatinine 1.16 mg/dL (0.70-1.30) 03/11/23 02:00 Glucose 141 mg/dL (74-106) H 03/11/23 02:00 Magnesium 2.3 mg/dL (1.6-2.4) 03/10/23 06:00 Total Bilirubin 0.5 mg/dL (0.2-1.0) 03/10/23 06:00 AST 17 U/L (15-37) 03/10/23 06:00 ALT 29 U/L (16-61) 03/10/23 06:00 Alkaline Phosphatase 94 U/L (45-117) 03/10/23 06:00 Home Medications: Ibuprofen/Acetaminophen [Advil Dual Action 250Mg-125Mg] 250 mg PO 1X 03/10/23 Followup: Tip Crawford MD [Primary Care Provider] -
--- NOTE | 2023-03-12 16:27 | RAD REPORT ---
EXAM DESCRIPTION: MRI - Lumbar Spine Wo Con - 03/12/2023 3:41 pm CLINICAL HISTORY: Back pain/radiculopathy COMPARISON: None TECHNIQUE: Sagittal T1, T2 and STIR weighted sequences were obtained. Axial T1 and T2 sequences were obtained through the lumbar disc levels. FINDINGS: Mild spondylosis involves the lumbar spine. No significant central/foraminal stenosis is seen. No disc herniation No abnormal signal within the bones IMPRESSION: Mild spondylosis
[2023-03-12 16:51] VITALS: BP 140/67; TEMP 97.9
--- NOTE | 2023-03-12 18:01 | RAD REPORT ---
EXAM DESCRIPTION: MRI - Thoracic Spine Wo Contr - 03/12/2023 3:41 pm CLINICAL HISTORY: Back pain/radiculopathy COMPARISON: None. TECHNIQUE: Sagittal T1 weighted, T2 weighted and T2 STIR weighted sequences were obtained. Axial T2 weighted images were obtained through each disc level. FINDINGS: 3 x 2 centimeter mass is present within the posterior subcutaneous tissue of the mid back . It has high signal on T2 weighted sequences. 3 millimeter area of increased signal is present within the spinal cord at the T5 level. Additionally there is a 8 x 2 millimeter area of increased signal abutting the posterior aspect of the spinal cor d at the superior aspect of the T5 level. Small to moderate left paracentral disc herniation T7-8 Remaining exam unremarkable IMPRESSION: 3 millimeter area of increased signal within the spinal cord at the T5 level probably is real, less likely artifact. Axial images were not obtained through this area 8 x 2 millimeter area of increased signal abutting the posterior aspect of the spinal cord at the T5 level. This may represent volume averaging of adjacent CSF or a subtle epidural mass. Axial images we re not obtained through this area It is recommended that the patient have magnetic resonance block axial images of the midthoracic spin e as well as post contrast T1 sequences for further evaluation Small to moderate left paracentral disc herniation T7-8 3 x 2 centimeter mass within the posterior subcutaneous tissues of the mid back may represent a sebac eous cyst The examination was discussed with the referring physician
--- NOTE | 2023-03-13 11:47 | PN ---
Date of Progress Note: 03/12/2023 Mr. Tinajero came in with very atypical chest pain, diffuse chest pain, back pain, leg pain. EKG was sl ightly abnormal. His troponin was over 500. We had decided to have him have a heart catheterization because of the troponin abnormality. His heart catheterization was practically normal. His troponi n elevation is of no clinical significance at this point. I am not so sure why it was elevated. Nev ertheless, he has done well post catheterization. No hematoma. No arrhythmias. Catheterization ent ry site is clean without any hematoma. He has good pulses. We will sign off his case. TRENTON/DEVEN Voice ID: [id number] Report ID: [id number]
--- NOTE | 2023-03-13 11:47 | CON ---
Date of Consultation: 03/11/2023 Reason For Consultation: Elevated troponin of 503. History Of Present Illness: Mr. Tinajero is a 57-year-old with previous past medical history. Came int o the emergency room with diffuse pain including chest pain, substernal, pressure-like, radiating to the back with some shortness of breath, diaphoresis. Denies nausea, vomiting. Denied PND, orthopnea , pedal edema, palpitations, or syncope. He was hurting all over and appeared to be very anxious. Past Medical History: Negative. Allergies: NONE. Medications: At home, none. Review of Systems: Negative. Social History: Negative. Family History: Noncontributory. Physical Examination: Vital Signs: Stable. Afebrile. HEENT: Negative. Neck: Supple with no bruit. Chest: Clear. Cardiac: Revealed a regular rhythm and rate. No murmurs, gallops, or rubs. Abdomen: Benign. Extremities: Revealed no clubbing, cyanosis, or edema. Diagnostic Data: EKG showed nonspecific changes. Troponin is 503. The rest was normal. Creatinine is normal. Impression And Plan: Rather atypical chest pain in general with diffuse pain throughout from his k[address], legs, back. EKG is nonspecific. We cannot really ignore his troponin of 503. It is going to be only abnormality that I see so far. I have discussed the case with the daughter and the patient, an d I think a heart catheterization was recommended for 03/11/2023 to define his coronary anatomy. He understands the risk and the benefits of the procedure, and he agrees to proceed. TRENTON/DEVEN Voice ID: [id number] Report ID: [id number]
== END 2023-03-12 17:33 | disposition home or self-care (01) | DRG 287 ==
LOC: ER 05:22 → ERHOLD 10:35 → 2ND 03-11 12:43 → OBSVTOIN 03-11 15:41
PROVIDERS: ADMIT Internal Medicine; ATTEND Internal Medicine
PROC: 4A023N7 Measurement of Cardiac Sampling and Pressure, Left Heart, Percutaneous Approach (ICD-10-PCS; principal; 2023-03-11)
PROC: B2111ZZ Fluoroscopy of Multiple Coronary Arteries using Low Osmolar Contrast (ICD-10-PCS; 2023-03-11)
DX: I20.0 Unstable angina (principal); M54.9 Dorsalgia, unspecified; R77.8 Other specified abnormalities of plasma proteins; M79.606 Pain in leg, unspecified; M46.94 Unspecified inflammatory spondylopathy, thoracic region; F17.210 Nicotine dependence, cigarettes, uncomplicated
CPT/HCPCS: 36415; 71045; 71275; 72146; 72148; 74175; 76937; 80048; 80076; 82550; 83735; 83880; 84484; 85025; 85610; 86038; 86140; 93005; 93458; 94760; 96372; 96374; 96375; 99285; C1893; G0378; J0461; J0500; J1100; J1170; J1644; J1650; J2001; J2250; J2405; J3010; J7030; J7040; Q9966; Q9967